=== PATIENT | female | born 1950 | race Caucasian/White ===

== ENCOUNTER → 2016-03-20 | Outpatient (CLI) | payer OTHER, MEDICARE | LOC: MMPC 09:00 | DX: Z51.89 Encounter for other specified aftercare (principal) | CPT/HCPCS: 95117 ==

== ENCOUNTER → 2016-03-25 | Outpatient (CLI) | payer OTHER, MEDICARE | LOC: MMPC 11:11 | DX: H25.89 Other age-related cataract (principal); E03.9 Hypothyroidism, unspecified; E83.39 Other disorders of phosphorus metabolism | CPT/HCPCS: 99213; G0463 ==

== ENCOUNTER → 2016-03-28 | Outpatient (CLI) | payer OTHER, MEDICARE ==
[2016-03-28 14:50] LABS: BASOPHILS # (AUTO) 0.02 10*3/UL; BASOPHILS % (AUTO) 0.4 % (0-1); EOSINOPHILS % (AUTO) 4.2 % (0-8); HEMATOCRIT 41.4 % (37.0-47.0); HEMOGLOBIN 13.8 g/dL (12.0-16.0); IMM GRAN % (AUTO) 0.2 % (0-5); IMM GRAN# (AUTO) 0.01 10*3/UL; LYMPHOCYTES # (AUTO) 1.15 10*3/uL; LYMPHOCYTES % (AUTO) 25.7 % (10-50); MEAN CORPUSCULAR HEMOGLOBIN 29.6 PG (27-31); MEAN CORPUSCULAR HGB CONC 33.3 g/dL (33-37); MEAN PLATELET VOLUME 12.4 FL (7.4-12.2); MONOCYTES # (AUTO) 0.36 10*3/UL (0.3-0.8); NEUTROPHILS # (AUTO) 2.75 10*3/UL; NEUTROPHILS % (AUTO) 61.5 % (50-80); RDW COEFFICIENT OF VARIATION 13.6 % (11.5-14.5); RED BLOOD COUNT 4.67 10^6/uL (4.20-5.40); WHITE BLOOD COUNT 4.48 10^3/uL (4.8-10.8)
[2016-03-28 14:53] LABS: PLATELET MORPHOLOGY COMMENT NORMAL MORPHOLOGY (NORM)
[2016-03-28 14:58] LABS: BLOOD UREA NITROGEN 16 mg/dL (7-22); CALCIUM 9.6 mg/dL (8.7-10.7); CHLORIDE 104 meq/L (98-112); CREATININE 0.8 mg/dL (0.50-1.20); EST GLOMERULAR FILTRATION > 60 (>60 ml/min/1.73m(2)); GLUCOSE 84 mg/dL (78-110); PHOSPHORUS 3.4 mg/dl (2.4-4.3); POTASSIUM 4.2 meq/L (3.8-5.2); SODIUM 143 meq/L (135-145)
== END ==
LOC: MOB LAB 11:35
DX: H25.89 Other age-related cataract (principal); E83.39 Other disorders of phosphorus metabolism; E03.9 Hypothyroidism, unspecified; K21.9 Gastro-esophageal reflux disease without esophagitis
CPT/HCPCS: 36415; 80048; 84100; 84443; 85025

== ENCOUNTER → 2016-04-03 | Outpatient (CLI) | payer OTHER, MEDICARE | LOC: MMPC 09:00 | DX: Z51.89 Encounter for other specified aftercare (principal) | CPT/HCPCS: 95117 ==

== ENCOUNTER → 2016-04-17 | Outpatient (CLI) | payer OTHER, MEDICARE | LOC: MMPC 09:00 | DX: Z51.89 Encounter for other specified aftercare (principal) | CPT/HCPCS: 95117 ==

== ENCOUNTER → 2016-05-01 | Outpatient (CLI) | payer OTHER, MEDICARE | LOC: MMPC 09:00 | DX: Z51.89 Encounter for other specified aftercare (principal) | CPT/HCPCS: 95117 ==

== ENCOUNTER → 2016-06-02 | Outpatient (CLI) | payer OTHER, MEDICARE | LOC: MMPC 09:00 | DX: Z51.89 Encounter for other specified aftercare (principal) | CPT/HCPCS: 95117 ==

== ENCOUNTER → 2016-06-16 | Outpatient (CLI) | payer OTHER, MEDICARE | LOC: MMPC 09:00 | DX: Z51.89 Encounter for other specified aftercare (principal) | CPT/HCPCS: 95117 ==

== ENCOUNTER → 2016-06-23 | Outpatient (CLI) | payer OTHER, MEDICARE | LOC: MMPC 09:00 | DX: Z51.89 Encounter for other specified aftercare (principal) | CPT/HCPCS: 95117 ==

== ENCOUNTER → 2016-07-07 | Outpatient (CLI) | payer OTHER, MEDICARE | LOC: MMPC 09:00 | DX: Z51.89 Encounter for other specified aftercare (principal) | CPT/HCPCS: 95117 ==

== ENCOUNTER → 2016-07-22 | Outpatient (CLI) | payer OTHER, MEDICARE | LOC: MMPC 09:00 | DX: Z51.89 Encounter for other specified aftercare (principal) | CPT/HCPCS: 95117 ==

== ENCOUNTER → 2016-08-06 | Outpatient (CLI) | payer OTHER, MEDICARE | LOC: MMPC 09:00 | DX: Z51.89 Encounter for other specified aftercare (principal) | CPT/HCPCS: 95117 ==

== ENCOUNTER → 2016-08-18 | Outpatient (CLI) | payer OTHER, MEDICARE | LOC: MMPC 09:00 | DX: Z51.89 Encounter for other specified aftercare (principal) | CPT/HCPCS: 95117 ==

== ENCOUNTER → 2016-08-28 | Outpatient (CLI) | payer OTHER, MEDICARE | LOC: MMPC 11:11 | DX: E89.0 Postprocedural hypothyroidism (principal); E55.9 Vitamin D deficiency, unspecified; R56.9 Unspecified convulsions; E78.5 Hyperlipidemia, unspecified; F32.9 Major depressive disorder, single episode, unspecified; Z85.850 Personal history of malignant neoplasm of thyroid; Z78.0 Asymptomatic menopausal state | CPT/HCPCS: 99213; G0463 ==

== ENCOUNTER → 2016-09-01 | Outpatient (CLI) | payer OTHER, MEDICARE | LOC: MMPC 09:00 | DX: Z51.89 Encounter for other specified aftercare (principal) | CPT/HCPCS: 95117 ==

== ENCOUNTER → 2016-09-02 | Outpatient (CLI) | payer OTHER, MEDICARE ==
[2016-09-02 08:06] LABS: BLOOD UREA NITROGEN 21 mg/dL (7-22); CALCIUM 9.2 mg/dL (8.7-10.7); CHOL/HDL RATIO 3.52 RATIO (0-4.0); EST GLOMERULAR FILTRATION > 60 (>60 ml/min/1.73m(2)); HDL CHOLESTEROL 65 mg/dL (40-150); SERUM ALBUMIN 4.6 g/dL (3.5-4.8); SERUM CHOLESTEROL 229 mg/dL (120-200)
[2016-09-02 09:15] LABS: FREE T4 (FREE THYROXINE) 0.74 ng/dL (0.93-1.71)
[2016-09-02 12:18] LABS: BILIRUBIN,URINE NEGATIVE (NEG); CLARITY,URINE CLEAR (CLEAR); COLOR,URINE YELLOW; GLUCOSE, URINE (UA) NEGATIVE (NEG); NITRATE,URINE NEGATIVE (NEG); OCCULT BLOOD,URINE NEGATIVE (NEG); PROTEIN,URINE NEGATIVE (NEG); UROBILINOGEN,URINE 0.2 mg/dL (0.2)
[2016-09-02 12:36] LABS: BACTERIA,URINE FEW; RBC,URINE 0-2 /hpf; SQUAMOUS EPITHELIAL CELL,UR MODERATE; URINE SAMPLE TYPE VOIDED SPECIMEN
== END ==
LOC: LAB 07:08
DX: E89.0 Postprocedural hypothyroidism (principal); E55.9 Vitamin D deficiency, unspecified; E78.5 Hyperlipidemia, unspecified; Z85.850 Personal history of malignant neoplasm of thyroid
CPT/HCPCS: 36415; 80053; 80061; 81001; 82306; 84439; 84443

== ENCOUNTER → 2016-09-25 | Outpatient (CLI) | payer OTHER, MEDICARE | LOC: MMPC 09:00 | DX: Z51.89 Encounter for other specified aftercare (principal) | CPT/HCPCS: 85610; 95117 ==

== ENCOUNTER → 2016-10-08 | Outpatient (CLI) | payer OTHER, MEDICARE | LOC: MMPC 09:00 | DX: Z51.89 Encounter for other specified aftercare (principal) | CPT/HCPCS: 95117 ==

== ENCOUNTER → 2016-10-28 | Outpatient (CLI) | payer OTHER, MEDICARE | LOC: MMPC 09:00 | DX: Z51.89 Encounter for other specified aftercare (principal) | CPT/HCPCS: 95117 ==